=== PATIENT | female | born 1975 | race Caucasian/White ===

== ENCOUNTER 2017-04-10 18:52 | Emergency (ER) | payer BC, OTHER ==
[~2017-04-10] VITALS: Ht 154.9 cm; Wt 55.8 kg
[2017-04-10 19:10] VITALS: BP_SYST 113
--- NOTE | 2017-04-10 19:10 | NUR ---
Patient triaged and placed in waiting room. VSS and patient appears in no acute distress at this time. Awaiting available bed, and MD notified of need for MSE.
--- NOTE | 2017-04-10 22:32 | NUR ---
Placed in room 07 . Placed on case monitor, blood pressure machine and pulse oximeter. To gown for exam. Side rails up. Report given to ADAM Sexton.
--- NOTE | 2017-04-10 22:45 | NUR ---
Patient moved to hallway bed to await MD evaluation.
--- NOTE | 2017-04-10 22:50 | NUR ---
Patient to ER via triage with c/o pain to left elbow, and right ankle after fall while working out at home this evening. Patient denies LOC, neck pain, back pain. Patient is awake, alert and oriented in no acute distress. Vital signs stable, respirations even and unlabored, skin warm and dry to touch. Awaiting evaluation by ER MD, will continue to observe and assess.
--- NOTE | 2017-04-10 22:55 | NUR ---
Patient offered ice pack, and warm blanket but patient declined. Patient resting quietly in no acute distress, male visitor at bedside.
--- NOTE | 2017-04-10 23:13 | NUR ---
Dr Montelongo at bedside to evaluate patient.
[2017-04-10 23:35] VITALS: BP_SYST 133
--- NOTE | 2017-04-10 23:35 | NUR ---
Patient given written and verbal discharge instructions and verbalizes understanding. ER MD discussed with patient the results and treatment provided. Patient in stable condition. ID arm band removed. Rx of Motrin given. Patient educated on pain management and to follow up with PMD. Pain Scale 2. Opportunity for questions provided and answered. Patient left ER ambulating with slow, steady gait in no acute distress. Patient left with magno bandages to elbow and ankle.
== END 2017-04-10 23:35 | disposition home or self-care (01) ==
LOC: SED 18:52
DX: S50.02XA Contusion of left elbow, initial encounter (principal); S90.01XA Contusion of right ankle, initial encounter; W19.XXXA Unspecified fall, initial encounter; Y93.89 Activity, other specified; Y92.219 Unspecified school as the place of occurrence of the external cause; Y99.0 Civilian activity done for income or pay
CPT/HCPCS: 81025; 99284

== ENCOUNTER 2019-02-02 07:47 | Emergency (ER) | payer BC, OTHER ==
[~2019-02-02] VITALS: Ht 165.1 cm; Wt 72.6 kg
[2019-02-02 08:01] VITALS: BP_SYST 127
--- NOTE | 2019-02-02 08:11 | NUR ---
Patient to ER bed 4 to gown for evaluation. Side rails up. Report given to ADAM Smith.
--- NOTE | 2019-02-02 08:12 | NUR ---
Patient is awake, alert, and oriented x4. She is complaining of intermittent left sided back pain 3 days. She went to urgent care last night and they told her she had hematuria and to go in for a CT scan. Patient still reports intermittent left flank pain.
--- NOTE | 2019-02-02 08:20 | NUR ---
ER Dr. Gross at bedside examining patient.
[2019-02-02] MEDS ORDERED: NACL 0.9% 1,000 ML IV ONE (08:31)
[2019-02-02] MEDS ORDERED: MORPHINE 2 MG/ML INJ. SYRINGE IVP ONE (08:45)
[2019-02-02 08:50] LABS: BASOPHILS % (AUTO) 0.5 % (0.0-2.0); EOSINOPHILS # (AUTO) 0.1 K/uL (0.0-0.4); EOSINOPHILS % (AUTO) 1.3 % (0.0-4.0); HEMATOCRIT 39.3 % (36-48); HEMOGLOBIN 13.3 g/dL (12.0-16.0); LYMPHOCYTES # (AUTO) 1.5 K/uL (1.0-5.5); LYMPHOCYTES % (AUTO) 27.2 % (20.5-51.5); MEAN CORPUSCULAR HEMOGLOBIN 30 pg (27-31); MEAN CORPUSCULAR HGB CONC 34 % (32-36); MEAN CORPUSCULAR VOLUME 87 fL (79.0-98.0); MONOCYTES # (AUTO) 0.3 K/uL (0.0-1.0); MONOCYTES % (AUTO) 5.5 % (1.7-9.3); NEUTROPHILS # (AUTO) 3.7 K/uL (1.8-7.7); NEUTROPHILS % (AUTO) 65.5 % (40.0-70.0); PLATELET COUNT (AUTO) 317 K/uL (130-430); RED CELL DISTRIBUTION WIDTH 13.4 % (9.0-15.0); WHITE BLOOD COUNT (AUTO) 5.6 K/uL (4.8-10.8)
[2019-02-02 09:04] LABS: CALCIUM 9.1 mg/dL (8.4-11.0); CREATININE 0.89 mg/dL (0.55-1.30); POTASSIUM 3.7 mmol/L (3.5-5.1)
[2019-02-02 09:10] LABS: ALBUMIN 3.4 g/dL (3.4-4.8); TOTAL BILIRUBIN 0.4 mg/dL (0.0-1.0)
[2019-02-02 10:12] LABS: BILIRUBIN,URINE NEGATIVE (NEGATIVE); CLARITY/URINE CLEAR (CLEAR); COLOR,URINE YELLOW (YELLOW); GLUCOSE,URINE NEGATIVE (NEGATIVE); KETONES,URINE NEGATIVE (NEGATIVE); LEUKOCYTE ESTERASE ,URINE NEGATIVE (NEGATIVE); NITRITE, URINE NEGATIVE (NEGATIVE); PROTEIN URINE NEGATIVE (NEGATIVE); UROBILINOGEN,URINE 0.2 (0.2-1.0)
[2019-02-02 10:14] LABS: BLOOD, URINE TRACE (NEGATIVE)
[2019-02-02 10:22] LABS: BACTERIA,URINE FEW /HPF (None Seen); RBC,URINE 0-3 /HPF (0-3); WBC,URINE 0-3 /HPF (0-3)
--- NOTE | 2019-02-02 11:05 | NUR ---
Dr. Gross in to update patient.
--- NOTE | 2019-02-02 11:29 | NUR ---
Patient given written and verbal discharge instructions and verbalizes understanding. ER MD discussed with patient the results and treatment provided. Patient in stable condition. ID arm band Patient educated on pain management and to follow up with PMD. Pain Scale 0/10. Opportunity for questions provided and answered. Medication side effect fact sheet provided.
[2019-02-02 11:30] VITALS: BP_SYST 128
== END 2019-02-02 11:30 | disposition home or self-care (01) ==
LOC: SED 07:47
DX: R31.9 Hematuria, unspecified (principal)
CPT/HCPCS: 36415; 74176; 80053; 81000; 85025; 96374; 99284; J2270; J7030

== ENCOUNTER 2019-03-02 01:48 | Emergency (ER) | payer BC ==
[~2019-03-02] VITALS: Ht 165.1 cm; Wt 72.6 kg
[2019-03-02 01:55] VITALS: BP_SYST 152
--- NOTE | 2019-03-02 02:02 | NUR ---
Patient to ER bed 04 to gown for evaluation. Side rails up. Report given to ADAM HUERTA
--- NOTE | 2019-03-02 02:03 | NUR ---
ER at bedside examining patient.
--- NOTE | 2019-03-02 02:12 | NUR ---
WALKED IN WITH A CHIEF COMPLAINT OF UPPER LIP REDNESS,SWELLING,PAIN WHICH STARTED AROUND [id number] LAST NIGHT AFTER EATING PASTA WITH RED SAUCE. DENIES ANY SOB OR RASH/HIVES.
[2019-03-02] MEDS ORDERED: DIPHENHYDRAMINE INJ 50 MG/ML VIAL IM ONE (02:15)
[2019-03-02] MEDS ORDERED: methylPREDNISolone SOD SUCC/PF 62.5 MG/ML VIAL IM ONE (02:15)
--- NOTE | 2019-03-02 02:15 | NUR ---
BENADRYL 50 MG IM AND SOLUMEDROL 125 MG IM GIVEN ORDERED.
--- NOTE | 2019-03-02 02:30 | NUR ---
ER-MD BACK AT BEDSIDE TO RE-EVALUATE AND DISCUSS PLAN OF CARE WITH PATIENT AND SIGNIFICANT OTHER.
--- NOTE | 2019-03-02 03:00 | NUR ---
DISCHARGED STABLE. LIP REDNESS,SWELLING AND PAIN IMPROVED. PRESCRIPTION,VERBAL AND WRITTEN AFTERCARE INSTRUCTIONS GIVEN. VERBALIZED UNDERSTANDING. LEFT UNIT AMBULATORY WITH STABLE GAIT.
[2019-03-02 03:05] VITALS: BP_SYST 125
== END 2019-03-02 03:05 | disposition home or self-care (01) ==
LOC: SED 01:48
DX: T78.3XXA Angioneurotic edema, initial encounter (principal); R03.0 Elevated blood-pressure reading, without diagnosis of hypertension; Z90.5 Acquired absence of kidney
CPT/HCPCS: 96372; 99283; J1200; J2930